=== PATIENT | female | born 1950 | race Caucasian/White ===

== ENCOUNTER 2017-03-29 15:29 | Emergency (ER) | payer OTHER ==
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
[2017-03-29] MEDS ORDERED: NORVASC PO (15:45)
[2017-03-29] MEDS ORDERED: VITAMIN D (15:46)
[2017-03-29] MEDS ORDERED: EFFEXOR PO (15:46)
[2017-03-29] MEDS ORDERED: HCTZ PO (15:46)
[2017-03-29] MEDS ORDERED: FISH OIL (15:46)
== END 2017-03-29 18:01 | disposition home or self-care (01) ==
LOC: SED 15:29
DX: S86.912A Strain of unspecified muscle(s) and tendon(s) at lower leg level, left leg, initial encounter (principal); S40.022A Contusion of left upper arm, initial encounter; I10 Essential (primary) hypertension; F17.210 Nicotine dependence, cigarettes, uncomplicated; Z23 Encounter for immunization; V49.40XA Driver injured in collision with unspecified motor vehicles in traffic accident, initial encounter; Y92.488 Other paved roadways as the place of occurrence of the external cause
CPT/HCPCS: 29530; 73090; 73130; 73562; 73630; 90471; 90715; 99284